=== PATIENT | male | born 1960 | race Caucasian/White ===

== ENCOUNTER 2018-06-11 15:53 | Inpatient (IN) | payer OTHER ==
[2018-06-11] MEDS: HYDROmorphONE 1 MG/ML SYG IV (19:40)
[2018-06-11] MEDS: SODIUM CHLORIDE 0.9% 1L BAG IV* (19:40)
[2018-06-11] MEDS: ONDANSETRON 4 MG INJ IV (19:40)
[2018-06-11] MEDS: PIPER-TAZO 3.375 GM IV (PMX) 100 ML IVPB (19:40)
[2018-06-11 19:45] LABS: ADD MAN DIFF? NO
[2018-06-11 19:53] LABS: WHITE BLOOD COUNT 9.1 10^3/ul (4.8-10.8)
[2018-06-11 19:53] LABS: BASOPHILS % 0.3 % (0.0-2.0); EOSINOPHILS # 0.1 10^3/ul (0.0-0.5); EOSINOPHILS % 1.1 % (0.0-7.0); HEMATOCRIT 33.1 % (42.0-52.0); HEMOGLOBIN 10.9 g/dl (14.0-18.0); LYMPHOCYTES % 21.9 % (15.0-51.0); MEAN CORPUSCULAR HEMOGLOBIN 29.5 pg (29.0-33.0); MEAN CORPUSCULAR HGB CONC 32.9 g/dl (32.0-37.0); MEAN CORPUSCULAR VOLUME 89.5 fl (82.0-101.0); MONOCYTE # 0.7 10^3/ul (0.3-0.9); MONOCYTES % 7.7 % (0.0-11.0); NEUTROPHIL # 6.3 10^3/ul (1.6-7.5); NEUTROPHILS % 68.7 % (39.0-77.0); PLATELET COUNT 268 10^3/UL (140-415); RED CELL DISTRIBUTION WIDTH 15.3 % (11.5-14.5)
[2018-06-11 20:10] LABS: PROTIME 14.4 Sec (11.9-14.9); PT RATIO 1.1
[2018-06-11 20:11] LABS: ALANINE AMINOTRANSFERASE 39 IU/L (13-69); ALBUMIN 3.7 g/dl (3.3-4.9); ALKALINE PHOSPHATASE 192 IU/L (42-121); ANION GAP 14 (8-16); ASPARTATE AMINO TRANSFERASE 27 IU/L (15-46); BILIRUBIN,INDIRECT 0.5 mg/dl (0-1.1); BILIRUBIN,TOTAL 0.5 mg/dl (0.2-1.3); BLOOD UREA NITROGEN 14 mg/dl (7-20); CALCIUM 9.2 mg/dl (8.4-10.2); CARBON DIOXIDE 23 mmol/L (21-31); CHLORIDE 106 mmol/L (97-110); CREATININE 1.02 mg/dl (0.61-1.24); GLUCOSE 63 mg/dl (70-220); PARTIAL THROMBOPLASTIN TIME 38.8 Sec (25.0-35.0); POTASSIUM 4.6 mmol/L (3.5-5.1); SODIUM 138 mmol/L (135-144); TOTAL PROTEIN 7.8 g/dl (6.1-8.1)
[2018-06-11 20:18] LABS: LACTIC ACID 2.2 mmol/L (0.5-2.0)
[2018-06-11] MEDS: CLINDAMYCIN 900 MG/D5W (PMX) 50 ML IVPB (20:25)
[2018-06-11] MEDS: VANCOMYCIN 1 GM (PMX) 250 ML IVPB (21:21)
[2018-06-11] MEDS ORDERED: ACETAMINOPHEN 325 MG TAB PO (21:30)
[2018-06-11] MEDS ORDERED: ONDANSETRON 4 MG INJ IV (21:30)
[2018-06-11 21:50] LABS: LACTIC ACID 1.1 mmol/L (0.5-2.0)
[2018-06-11] MEDS ORDERED: GLUCAGON 1 MG INJ IM (23:00)
[2018-06-11] MEDS ORDERED: NACL 0.9% 3 ML SYG IV (23:00)
[2018-06-11] MEDS ORDERED: DEXTROSE 50% 50 ML SYRINGE IV ×2 (23:00)
[2018-06-11] MEDS ORDERED: GLUCOSE GEL 15 GRAM TUBE PO ×2 (23:00)
[2018-06-11] MEDS ORDERED: GLUCOSE GEL 15 GRAM TUBE BUCCAL (23:00)
[2018-06-11] MEDS ORDERED: VANCOMYCIN IV PER PHARMACY XX (23:00)
[2018-06-11] MEDS ORDERED: BISACODYL (EC) 5 MG TAB PO (23:00)
[2018-06-11] MEDS ORDERED: DOCUSATE SODIUM 100 MG CAP PO (23:00)
[2018-06-11] MEDS: morphine 2 MG INJ IV (23:05)
[2018-06-11 23:12] LABS: LACTIC ACID 0.9 mmol/L (0.5-2.0)
[2018-06-12] MEDS: ACCU-CHEK XX (01:19)
[2018-06-12] MEDS: PIPER-TAZO 3.375 GM IV (PMX) 100 ML IVPB ×3 (05:45→17:29)
[2018-06-12] MEDS: PANTOPRAZOLE (EC) 40 MG TAB PO (05:45)
[2018-06-12] MEDS: CLINDAMYCIN 600 MG/D5W (PMX) 50 ML IVPB (07:05)
[2018-06-12] MEDS: INSULIN ASPART [NOVOLOG] 3 ML PEN SC ×4 (08:00→21:03)
[2018-06-12] MEDS: HYDROCHLOROTHIAZIDE 25 MG TAB PO (08:12)
[2018-06-12] MEDS: VANCOMYCIN 1.5 GM in SOD CHLORIDE 0.9% 250 ML IVPB (08:12)
[2018-06-12] MEDS: LOSARTAN 50 MG TAB PO ×2 (08:13→20:59)
[2018-06-12] MEDS: AMIODARONE 200 MG TAB PO (08:13)
[2018-06-12] MEDS: AMLODIPINE 10 MG TAB PO (08:13)
[2018-06-12] MEDS: INSULIN GLARGINE [LANTus] (100 UNITS/ML) SYG SC ×2 (08:36→21:17)
[2018-06-12 09:26] LABS: ADD MAN DIFF? NO
[2018-06-12 09:36] LABS: WHITE BLOOD COUNT 7.4 10^3/ul (4.8-10.8)
[2018-06-12 09:36] LABS: BASOPHILS % 0.4 % (0.0-2.0); EOSINOPHILS # 0.1 10^3/ul (0.0-0.5); EOSINOPHILS % 1.1 % (0.0-7.0); HEMATOCRIT 30.1 % (42.0-52.0); HEMOGLOBIN 9.5 g/dl (14.0-18.0); LYMPHOCYTES # 1.5 10^3/ul (0.8-2.9); LYMPHOCYTES % 20.5 % (15.0-51.0); MEAN CORPUSCULAR HEMOGLOBIN 28.9 pg (29.0-33.0); MEAN CORPUSCULAR HGB CONC 31.6 g/dl (32.0-37.0); MEAN CORPUSCULAR VOLUME 91.5 fl (82.0-101.0); MEAN PLATELET VOLUME 9.1 fl (7.4-10.4); MONOCYTE # 0.6 10^3/ul (0.3-0.9); MONOCYTES % 8.1 % (0.0-11.0); NEUTROPHIL # 5.2 10^3/ul (1.6-7.5); NEUTROPHILS % 69.5 % (39.0-77.0); PLATELET COUNT 253 10^3/UL (140-415); RED BLOOD COUNT 3.29 10^6/ul (4.70-6.10); RED CELL DISTRIBUTION WIDTH 15.6 % (11.5-14.5)
[2018-06-12 09:55] LABS: HEMOGLOBIN A1C 5.8 % (0-5.9)
[2018-06-12 10:13] LABS: ALANINE AMINOTRANSFERASE 34 IU/L (13-69); ALBUMIN 3.1 g/dl (3.3-4.9); ALBUMIN/GLOBULIN RATIO 0.88; ALKALINE PHOSPHATASE 135 IU/L (42-121); ANION GAP 13 (8-16); ASPARTATE AMINO TRANSFERASE 25 IU/L (15-46); BILIRUBIN,INDIRECT 0.4 mg/dl (0-1.1); BILIRUBIN,TOTAL 0.4 mg/dl (0.2-1.3); BLOOD UREA NITROGEN 14 mg/dl (7-20); CALCIUM 8.3 mg/dl (8.4-10.2); CARBON DIOXIDE 24 mmol/L (21-31); CHLORIDE 108 mmol/L (97-110); CHOL/HDL RATIO 3.2 RATIO; CHOLESTEROL 98 mg/dl (100-200); CREATININE 1.03 mg/dl (0.61-1.24); GLUCOSE 72 mg/dl (70-220); HDL CHOLESTEROL 30 mg/dl (28-71); LDL CHOLESTEROL,CALCULATED 53 mg/dl; MAGNESIUM 1.7 mg/dl (1.7-2.5); POTASSIUM 4.9 mmol/L (3.5-5.1); SODIUM 140 mmol/L (135-144); TOTAL PROTEIN 6.6 g/dl (6.1-8.1); TRIGLYCERIDES 74 mg/dl (0-149)
[2018-06-12] MEDS: morphine LIQ (10 MG/5 ML) CUP PO ×2 (16:23→21:02)
[2018-06-12] MEDS: VANCOMYCIN 1 GM 250 ML IVPB (20:58)
[2018-06-12] MEDS: ATORVASTATIN 80 MG TAB PO (20:59)
[2018-06-13] MEDS: ACCU-CHEK XX (02:00)
[2018-06-13] MEDS: PANTOPRAZOLE (EC) 40 MG TAB PO (06:40)
[2018-06-13] MEDS: PIPER-TAZO 3.375 GM IV (PMX) 100 ML IVPB ×4 (06:40→17:16)
[2018-06-13] MEDS: INSULIN ASPART [NOVOLOG] 3 ML PEN SC ×4 (08:00→21:34)
[2018-06-13] MEDS: VANCOMYCIN 1 GM 250 ML IVPB ×2 (08:06→21:38)
[2018-06-13] MEDS: HYDROCHLOROTHIAZIDE 25 MG TAB PO (09:21)
[2018-06-13] MEDS: LOSARTAN 50 MG TAB PO ×2 (09:22→21:29)
[2018-06-13] MEDS: AMIODARONE 200 MG TAB PO (09:22)
[2018-06-13] MEDS: morphine LIQ (10 MG/5 ML) CUP PO ×2 (09:23→18:01)
[2018-06-13] MEDS: AMLODIPINE 10 MG TAB PO (09:23)
[2018-06-13] MEDS: INSULIN GLARGINE [LANTus] (100 UNITS/ML) SYG SC ×2 (09:37→21:34)
[2018-06-13] MEDS: ASPIRIN (EC) 81 MG TAB PO (10:04)
[2018-06-13] MEDS: IOHEXOL 300MG/ML 150 ML BTL (11:50)
[2018-06-13] MEDS: SOD CHLORIDE 0.9% 100 ML (11:51)
[2018-06-13 19:18] LABS: VANCOMYCIN,TROUGH 12.8 ug/ml (10.0-20.0)
[2018-06-13] MEDS: ATORVASTATIN 80 MG TAB PO (21:28)
[2018-06-13] MEDS: HYDROmorphONE 0.5 MG/0.5 ML SYG IV (21:29)
[2018-06-14] MEDS: ACCU-CHEK XX (02:00)
[2018-06-14] MEDS: HYDROmorphONE 0.5 MG/0.5 ML SYG IV ×4 (02:47→19:49)
[2018-06-14] MEDS: PIPER-TAZO 3.375 GM IV (PMX) 100 ML IVPB ×2 (06:15)
[2018-06-14] MEDS: PANTOPRAZOLE (EC) 40 MG TAB PO (06:15)
[2018-06-14 07:46] LABS: ADD MAN DIFF? NO
[2018-06-14 07:51] LABS: WHITE BLOOD COUNT 9.9 10^3/ul (4.8-10.8)
[2018-06-14 07:51] LABS: BASOPHILS % 0.3 % (0.0-2.0); EOSINOPHILS # 0.1 10^3/ul (0.0-0.5); EOSINOPHILS % 0.5 % (0.0-7.0); HEMATOCRIT 27.4 % (42.0-52.0); HEMOGLOBIN 8.9 g/dl (14.0-18.0); LYMPHOCYTES # 2.2 10^3/ul (0.8-2.9); LYMPHOCYTES % 22.1 % (15.0-51.0); MEAN CORPUSCULAR HEMOGLOBIN 29.2 pg (29.0-33.0); MEAN CORPUSCULAR HGB CONC 32.5 g/dl (32.0-37.0); MEAN CORPUSCULAR VOLUME 89.8 fl (82.0-101.0); MEAN PLATELET VOLUME 9.2 fl (7.4-10.4); MONOCYTES % 10.1 % (0.0-11.0); NEUTROPHIL # 6.6 10^3/ul (1.6-7.5); NEUTROPHILS % 66.7 % (39.0-77.0); PLATELET COUNT 244 10^3/UL (140-415); RED BLOOD COUNT 3.05 10^6/ul (4.70-6.10); RED CELL DISTRIBUTION WIDTH 15.3 % (11.5-14.5)
[2018-06-14] MEDS: INSULIN ASPART [NOVOLOG] 3 ML PEN SC ×4 (08:00→21:00)
[2018-06-14 08:14] LABS: ANION GAP 10 (8-16); BLOOD UREA NITROGEN 17 mg/dl (7-20); CALCIUM 8.2 mg/dl (8.4-10.2); CARBON DIOXIDE 24 mmol/L (21-31); CHLORIDE 106 mmol/L (97-110); CREATININE 1.25 mg/dl (0.61-1.24); GLUCOSE 118 mg/dl (70-220); POTASSIUM 4.2 mmol/L (3.5-5.1); SODIUM 136 mmol/L (135-144)
[2018-06-14] MEDS: INSULIN GLARGINE [LANTus] (100 UNITS/ML) SYG SC ×2 (08:38→20:26)
[2018-06-14] MEDS: LOSARTAN 50 MG TAB PO ×2 (09:00→20:17)
[2018-06-14] MEDS: ASPIRIN (EC) 81 MG TAB PO (09:00)
[2018-06-14] MEDS: HYDROCHLOROTHIAZIDE 25 MG TAB PO (09:00)
[2018-06-14] MEDS: AMLODIPINE 10 MG TAB PO (09:01)
[2018-06-14] MEDS: AMIODARONE 200 MG TAB PO (09:02)
[2018-06-14] MEDS: DOXYCYCLINE 100 MG TAB PO ×2 (09:03→20:17)
[2018-06-14 09:19] LABS: ERYTHROCYTE SEDIMENTATION RATE 95 mm/Hr (0-20)
[2018-06-14] MEDS: MEROPENEM 1 GM/50ML(PMX) 50 ML IVPB ×2 (14:21→22:21)
[2018-06-14] MEDS: GABAPENTIN 100 MG CAP PO ×2 (15:58→20:16)
[2018-06-14] MEDS: ACETAMINOPHEN 325 MG TAB PO (15:58)
[2018-06-14] MEDS: ATORVASTATIN 80 MG TAB PO (20:16)
[2018-06-15] MEDS: HYDROmorphONE 0.5 MG/0.5 ML SYG IV ×4 (01:31→21:06)
[2018-06-15] MEDS: ACCU-CHEK XX (01:38)
[2018-06-15 06:30] LABS: ADD MAN DIFF? NO
[2018-06-15] MEDS: MEROPENEM 1 GM/50ML(PMX) 50 ML IVPB (06:30)
[2018-06-15] MEDS: PANTOPRAZOLE (EC) 40 MG TAB PO (06:30)
[2018-06-15 06:33] LABS: BASOPHILS % 0.2 % (0.0-2.0); EOSINOPHILS # 0.1 10^3/ul (0.0-0.5); EOSINOPHILS % 0.8 % (0.0-7.0); HEMATOCRIT 25.7 % (42.0-52.0); HEMOGLOBIN 8.3 g/dl (14.0-18.0); LYMPHOCYTES # 1.6 10^3/ul (0.8-2.9); LYMPHOCYTES % 19.1 % (15.0-51.0); MEAN CORPUSCULAR HEMOGLOBIN 28.9 pg (29.0-33.0); MEAN CORPUSCULAR HGB CONC 32.3 g/dl (32.0-37.0); MEAN CORPUSCULAR VOLUME 89.5 fl (82.0-101.0); MEAN PLATELET VOLUME 9.3 fl (7.4-10.4); MONOCYTE # 0.7 10^3/ul (0.3-0.9); MONOCYTES % 8.8 % (0.0-11.0); NEUTROPHIL # 5.9 10^3/ul (1.6-7.5); NEUTROPHILS % 70.6 % (39.0-77.0); PLATELET COUNT 223 10^3/UL (140-415); RED BLOOD COUNT 2.87 10^6/ul (4.70-6.10)
[2018-06-15 06:33] LABS: WHITE BLOOD COUNT 8.4 10^3/ul (4.8-10.8)
[2018-06-15 06:54] LABS: INR 1.33; PROTIME 16.7 Sec (11.9-14.9); PT RATIO 1.3
[2018-06-15 06:55] LABS: PARTIAL THROMBOPLASTIN TIME 42.2 Sec (25.0-35.0)
[2018-06-15 06:58] LABS: ALANINE AMINOTRANSFERASE 45 IU/L (13-69); ALBUMIN 2.8 g/dl (3.3-4.9); ALKALINE PHOSPHATASE 149 IU/L (42-121); ANION GAP 11 (8-16); ASPARTATE AMINO TRANSFERASE 41 IU/L (15-46); BILIRUBIN,INDIRECT 0.2 mg/dl (0-1.1); BILIRUBIN,TOTAL 0.2 mg/dl (0.2-1.3); BLOOD UREA NITROGEN 22 mg/dl (7-20); CARBON DIOXIDE 23 mmol/L (21-31); CHLORIDE 107 mmol/L (97-110); CREATININE 1.28 mg/dl (0.61-1.24); GLUCOSE 132 mg/dl (70-220); POTASSIUM 3.9 mmol/L (3.5-5.1); SODIUM 137 mmol/L (135-144); TOTAL PROTEIN 6.3 g/dl (6.1-8.1)
[2018-06-15] MEDS: DOXYCYCLINE 100 MG TAB PO ×2 (09:05→21:07)
[2018-06-15] MEDS: ASPIRIN (EC) 81 MG TAB PO (09:06)
[2018-06-15] MEDS: GABAPENTIN 100 MG CAP PO ×2 (09:06→21:07)
[2018-06-15] MEDS: CEFPODOXIME 200 MG TAB PO ×2 (09:06→21:06)
[2018-06-15] MEDS: HYDROCHLOROTHIAZIDE 25 MG TAB PO (09:06)
[2018-06-15] MEDS: LOSARTAN 50 MG TAB PO ×2 (09:07→21:09)
[2018-06-15] MEDS: AMIODARONE 200 MG TAB PO (09:07)
[2018-06-15] MEDS: AMLODIPINE 10 MG TAB PO (09:08)
[2018-06-15] MEDS: INSULIN ASPART [NOVOLOG] 3 ML PEN SC ×4 (09:25→21:17)
[2018-06-15] MEDS: INSULIN GLARGINE [LANTus] (100 UNITS/ML) SYG SC ×2 (09:26→21:16)
[2018-06-15] MEDS: ATORVASTATIN 80 MG TAB PO (21:07)
[2018-06-16] MEDS: ACCU-CHEK XX (02:21)
[2018-06-16] MEDS: HYDROmorphONE 0.5 MG/0.5 ML SYG IV (02:43)
[2018-06-16] MEDS: PANTOPRAZOLE (EC) 40 MG TAB PO (05:00)
[2018-06-16 07:38] LABS: ADD MAN DIFF? NO
[2018-06-16 07:47] LABS: BASOPHILS % 0.3 % (0.0-2.0); EOSINOPHILS # 0.2 10^3/ul (0.0-0.5); EOSINOPHILS % 2.3 % (0.0-7.0); HEMATOCRIT 27.4 % (42.0-52.0); HEMOGLOBIN 8.9 g/dl (14.0-18.0); LYMPHOCYTES # 1.6 10^3/ul (0.8-2.9); LYMPHOCYTES % 20.3 % (15.0-51.0); MEAN CORPUSCULAR HGB CONC 32.5 g/dl (32.0-37.0); MEAN CORPUSCULAR VOLUME 89.3 fl (82.0-101.0); MEAN PLATELET VOLUME 9.7 fl (7.4-10.4); MONOCYTE # 0.7 10^3/ul (0.3-0.9); NEUTROPHIL # 5.4 10^3/ul (1.6-7.5); NEUTROPHILS % 67.7 % (39.0-77.0); PLATELET COUNT 264 10^3/UL (140-415); RED BLOOD COUNT 3.07 10^6/ul (4.70-6.10)
[2018-06-16 07:47] LABS: WHITE BLOOD COUNT 7.9 10^3/ul (4.8-10.8)
[2018-06-16 08:11] LABS: ALANINE AMINOTRANSFERASE 86 IU/L (13-69); ALBUMIN 3.1 g/dl (3.3-4.9); ALBUMIN/GLOBULIN RATIO 0.88; ALKALINE PHOSPHATASE 171 IU/L (42-121); ANION GAP 9 (8-16); ASPARTATE AMINO TRANSFERASE 92 IU/L (15-46); BILIRUBIN,INDIRECT 0.1 mg/dl (0-1.1); BILIRUBIN,TOTAL 0.1 mg/dl (0.2-1.3); BLOOD UREA NITROGEN 34 mg/dl (7-20); CALCIUM 8.3 mg/dl (8.4-10.2); CARBON DIOXIDE 24 mmol/L (21-31); CHLORIDE 107 mmol/L (97-110); CREATININE 1.26 mg/dl (0.61-1.24); GLUCOSE 145 mg/dl (70-220); SODIUM 136 mmol/L (135-144); TOTAL PROTEIN 6.6 g/dl (6.1-8.1)
[2018-06-16] MEDS: INSULIN ASPART [NOVOLOG] 3 ML PEN SC ×4 (08:36→20:46)
[2018-06-16] MEDS: AMLODIPINE 10 MG TAB PO (08:39)
[2018-06-16] MEDS: DOXYCYCLINE 100 MG TAB PO ×2 (08:39→20:43)
[2018-06-16] MEDS: ASPIRIN (EC) 81 MG TAB PO (08:40)
[2018-06-16] MEDS: GABAPENTIN 100 MG CAP PO ×2 (08:40→20:42)
[2018-06-16] MEDS: CEFPODOXIME 200 MG TAB PO ×2 (08:40→20:43)
[2018-06-16] MEDS: AMIODARONE 200 MG TAB PO (08:40)
[2018-06-16] MEDS: HYDROCHLOROTHIAZIDE 25 MG TAB PO (08:40)
[2018-06-16] MEDS: LOSARTAN 50 MG TAB PO (08:40)
[2018-06-16] MEDS: INSULIN GLARGINE [LANTus] (100 UNITS/ML) SYG SC ×2 (08:46→20:52)
[2018-06-16] MEDS: morphine LIQ (10 MG/5 ML) CUP PO (11:01)
[2018-06-16] MEDS: HYDROmorphONE 2 MG TAB PO ×2 (15:28→21:01)
[2018-06-16] MEDS: COLLAGENASE 5 GM (UD JAR) TOP (19:00)
[2018-06-16] MEDS: ATORVASTATIN 80 MG TAB PO (20:42)
[2018-06-17] MEDS: ACCU-CHEK XX (02:00)
[2018-06-17] MEDS: PANTOPRAZOLE (EC) 40 MG TAB PO (05:26)
[2018-06-17] MEDS: INSULIN ASPART [NOVOLOG] 3 ML PEN SC ×2 (08:00→12:20)
[2018-06-17] MEDS: INSULIN GLARGINE [LANTus] (100 UNITS/ML) SYG SC (08:21)
[2018-06-17] MEDS: GABAPENTIN 100 MG CAP PO (08:22)
[2018-06-17] MEDS: COLLAGENASE 5 GM (UD JAR) TOP (08:22)
[2018-06-17] MEDS: DOXYCYCLINE 100 MG TAB PO (08:22)
[2018-06-17] MEDS: CEFPODOXIME 200 MG TAB PO (08:22)
[2018-06-17] MEDS: ASPIRIN (EC) 81 MG TAB PO (08:22)
[2018-06-17] MEDS: AMIODARONE 200 MG TAB PO (08:24)
[2018-06-17] MEDS: HYDROmorphONE 2 MG TAB PO (08:24)
[2018-06-17] MEDS: AMLODIPINE 10 MG TAB PO (08:24)
[2018-06-17] MEDS: HYDROCHLOROTHIAZIDE 25 MG TAB PO (08:25)
[2018-06-17] MEDS: LOSARTAN 50 MG TAB PO (08:25)
[2018-06-17 11:08] LABS: ALANINE AMINOTRANSFERASE 96 IU/L (13-69); ALBUMIN 2.5 g/dl (3.3-4.9); ALBUMIN/GLOBULIN RATIO 0.78; ALKALINE PHOSPHATASE 154 IU/L (42-121); ANION GAP 12 (8-16); ASPARTATE AMINO TRANSFERASE 85 IU/L (15-46); BLOOD UREA NITROGEN 38 mg/dl (7-20); CALCIUM 8.1 mg/dl (8.4-10.2); CARBON DIOXIDE 22 mmol/L (21-31); CHLORIDE 106 mmol/L (97-110); CREATININE 1.26 mg/dl (0.61-1.24); GLUCOSE 155 mg/dl (70-220); POTASSIUM 4.3 mmol/L (3.5-5.1); SODIUM 136 mmol/L (135-144); TOTAL PROTEIN 5.7 g/dl (6.1-8.1)
[2018-06-17] MEDS ORDERED: LOSARTAN 50 MG TAB PO (21:00)
== END 2018-06-17 17:36 | disposition home health service (06) | DRG 871 ==
LOC: MS4 21:45 → E/R 15:53 → MS4 21:04
DX: A41.9 Sepsis, unspecified organism (principal); N17.0 Acute kidney failure with tubular necrosis; L03.116 Cellulitis of left lower limb; E87.2 Acidosis; N17.9 Acute kidney failure, unspecified; L76.34 Postprocedural seroma of skin and subcutaneous tissue following other procedure; E11.40 Type 2 diabetes mellitus with diabetic neuropathy, unspecified; E11.21 Type 2 diabetes mellitus with diabetic nephropathy; E11.51 Type 2 diabetes mellitus with diabetic peripheral angiopathy without gangrene; E11.319 Type 2 diabetes mellitus with unspecified diabetic retinopathy without macular edema; I25.10 Atherosclerotic heart disease of native coronary artery without angina pectoris; E78.5 Hyperlipidemia, unspecified; M1A.9XX0 Chronic gout, unspecified, without tophus (tophi); I12.9 Hypertensive chronic kidney disease with stage 1 through stage 4 chronic kidney disease, or unspecified chronic kidney disease; N18.9 Chronic kidney disease, unspecified; I25.5 Ischemic cardiomyopathy; Y84.8 Other medical procedures as the cause of abnormal reaction of the patient, or of later complication, without mention of misadventure at the time of the procedure; Y92.009 Unspecified place in unspecified non-institutional (private) residence as the place of occurrence of the external cause; Z79.4 Long term (current) use of insulin; Z89.421 Acquired absence of other right toe(s); Z95.1 Presence of aortocoronary bypass graft
CPT/HCPCS: 71045; 73700; 80048; 80053; 80061; 80202; 82962; 83036; 83605; 83735; 84443; 85025; 85610; 85651; 85730; 87040; 87070; 87081; 93005; 93306; 93971; 96374; 96375; 99285-25